=== PATIENT | female | born 1935 | race Caucasian/White ===

== ENCOUNTER 2018-03-27 11:56 | Inpatient (IN) | payer MEDICARE ==
[~2018-03-27] VITALS: Ht 149.9 cm; Wt 54.9 kg
[2018-03-27 12:24] LABS: BASOPHILS % 0.4 % (0.0-1.0); EOSINOPHILS # (AUTO) 0.2 (0.0-0.4); EOSINOPHILS % 3.6 % (0.0-6.0); HEMATOCRIT 37.8 % (34.2-44.1); HEMOGLOBIN 12.7 g/dL (12.0-16.0); LYMPHOCYTES # (AUTO) 1.9 (1.0-3.2); LYMPHOCYTES % 37.5 % (18.0-39.1); MEAN CORPUSCULAR HEMOGLOBIN 29.1 pg (28-32); MEAN CORPUSCULAR HGB CONC 33.6 g/dL (31-35); MEAN CORPUSCULAR VOLUME 86.7 fL (81-99); MONOCYTES # (AUTO) 0.4 (0.2-0.8); MONOCYTES % 8.6 % (4.4-11.3); NEUTROPHILS # (AUTO) 2.5 (2.1-6.9); NEUTROPHILS % 49.7 % (38.7-80.0); PLATELET COUNT 213 x10e3/uL (140-360); RED BLOOD COUNT 4.36 x10e6/uL (3.6-5.1); RED CELL DISTRIBUTION WIDTH 13.2 % (11.7-14.4)
[2018-03-27 12:33] LABS: INR 1.1; PROTHROMBIN TIME 13.4 seconds (11.9-14.5)
[2018-03-27 12:34] LABS: PARTIAL THROMBOPLASTIN TIME 30.6 seconds (23.8-35.5)
[2018-03-27 12:41] LABS: ALANINE AMINOTRANSFERASE 28 IU/L (0-55); ALBUMIN 3.8 g/dL (3.5-5.0); ALBUMIN/GLOBULIN RATIO 1.3 (0.8-2.0); ALKALINE PHOSPHATASE 62 IU/L (40-150); BLOOD UREA NITROGEN 10 mg/dL (7-26); BUN/CREATININE RATIO 13 (6-25); CALCIUM 9.4 mg/dL (8.4-10.2); CARBON DIOXIDE 28 mmol/L (22-29); CHLORIDE 104 mmol/L (98-107); CREATINE KINASE 68 IU/L (29-168); EST GLOMERULAR FILTRATION RATE > 60 ML/MIN (60-); GLUCOSE 126 mg/dL (74-118); SODIUM 139 mmol/L (136-145)
--- NOTE | 2018-03-27 13:17 | Diagnostic Imaging Report ---
Exam: Head CT without contrast History: Loss of vision. Comparison studies: None Technique: Axial images were obtained from the skull base to the vertex. Coronal and sagittal images reconstructed from the axial data. Intravenous contrast: None Findings: Scalp: No abnormalities. Bones: No fractures, blastic or lytic lesions. Brain sulci: Appropriate for age. Ventricles: Normal in size and configuration. No hydrocephalus. Extra-axial spaces: No masses, no fluid collection. Parenchyma: No mass, acute hemorrhage or acute or chronic cortical vascular insults. A few hypodensities in the supratentorial white matter are nonspecific but most compatible with chronic small vessel ischemic changes. Nonspecific left perimesencephalic curvilinear calcification without surrounding edema or mass affect may be vascular in etiology, possibly vascular calcification within the left posterior cerebral artery. Sellar/suprasellar region: No abnormalities. Craniocervical junction: Patent foramen magnum. No Chiari one malformation. Included paranasal sinuses: Right frontal sinus is opacified and contains inspissated hyperdense secretions. The bilateral ethmoid air cells are partially opacified and there is nonspecific mucosal thickening in the partially imaged maxillary sinuses. Small fluid level in the left sphenoid sinus could be correlated for acute sinusitis. 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 Intraocular lens replacements related to previous scattered surgery. IMPRESSION: 1. No acute intracranial abnormalities. 2. Mild to moderate chronic microvascular ischemic changes. 3. Intracranial vascular calcifications as described. 4. Inflammatory changes in the paranasal sinuses. Signed by: Dr. Giancarlo Ramírez M.D. on 03/27/2018 1:13 PM
--- NOTE | 2018-03-27 13:26 | Diagnostic Imaging Report ---
PROCEDURE: CHEST SINGLE (PORTABLE) COMPARISON: None. INDICATIONS: DOUBLE VISION. UNSTEADY GAIT FINDINGS: LUNGS: Vague ill-defined nodular opacity in the right upper lobe could be artifactual. Followup upright PA and lateral chest would be of benefit. PLEURA: No effusions or pneumothorax. HEART \T\ MEDIASTINUM: The heart is within normal size-limits. BONES \T\ SOFT TISSUES: No acute findings. CONCLUSION: 1. No acute thoracic abnormality. 2. Possible right upper lobe nodule. Vincent Villanueva D.O. Dictated by: Vincent Villanueva D.O. on 03/27/2018 at 13:29 Electronically approved by: Vincent Villanueva D.O. on 03/27/2018 at 13:29
[2018-03-27] MEDS ORDERED: ASPIRIN 325 MG TAB PO ONE (14:30)
--- OUTSIDE RECORDS SUMMARY | 2018-03-27 14:34 | XMS REPORT ---
Author Author [facility] Address Unknown Phone Unavailable Care Team Providers Care Improvement Nurse Name Role Phone ALEX NESBITT Unavailable Unavailable Problems This patient has no known problems. Allergies, Adverse Reactions, Alerts This patient has no known allergies or adverse reactions. Medications This patient has no known medications. Results Test Description Test Time Test Comments Text Results Atomic Results Result Comments CHEST SINGLE (PORTABLE) [place] [address] Patient Name: BITA LUEVANO MR #: [id number] : 1935 Age/Sex: 82/F Req #: [id number] Adm Physician: Ordered by: ALEX NESBITT MD Report #: [id number] Location: ER Room/Bed: Procedure: [id number] DX/CHEST SINGLE (PORTABLE) Exam Date: 03/27/18 Exam Time: 1225 REPORT STATUS: Signed PROCEDURE: CHEST SINGLE (PORTABLE) COMPARISON: None. INDICATIONS: DOUBLE VISION. UNSTEADY GAIT FINDINGS: LUNGS: Vague ill-defined nodular opacity in the right upper lobe could be artifactual. Followup upright PA and lateral chest would be of benefit. PLEURA: No effusions or pneumothorax. HEART T MEDIASTINUM: The heart is within normal size- limits. BONES T SOFT TISSUES: No acute findings. CONCLUSION : 1. No acute thoracic abnormality. 2. Possible right upper lobe nodule. Macario Villanueva D.O. Dictated by: Macario Villanueva D.O. on 03/27/2018 at 13:29 Electronically approved by: Macario Villanueva D.O. on 03/27/2018 at 13:29 Dictated By: MACARIO VILLANUEVA DO 1329 Transcribed By: STU on 03/27/18 1329 COPY TO: ALEX NESBITT MD CT BRAIN WO [place] [address] Patient Name: BITA LUEVANO MR #: [id number] : 1935 Age/Sex: 82/F Req #: [id number] Adm Physician: Ordered by: ALEX NESBITT MD Report #: [id number] Location: ER Room/Bed: Procedure: [id number] CT/CT BRAIN WO Exam Date: 03/27/18 Exam Time: 1225 REPORT STATUS: Signed Exam: Head CT without contrast History: Loss of vision. Comparison studies: None Technique: Axial images were obtained from the skull base to the vertex. Coronal and sagittal images reconstructed from the axial data. Intravenous contrast: None Findings: Scalp: No abnormalities. Bones: No fractures, blastic or lytic lesions. Brain sulci: Appropriate for age. Ventricles: Normal in size and configuration. No hydrocephalus. Extra-axial spaces: No masses, no fluid collection. Parenchyma: No mass, acute hemorrhage or acute or chronic cortical vascular insults. A few hypodensities in the supratentorial white matter are nonspecific but most compatible with chronic small vessel ischemic changes. Nonspecific left perimesencephalic curvilinear calcification without surrounding edema or mass affect may be vascular in etiology, possibly vascular calcification within the left posterior cerebral artery. Sellar/ suprasellar region: No abnormalities. Craniocervical junction: Patent foramen magnum. No Chiari one malformation. Included paranasal sinuses: Right frontal sinus is opacified and contains inspissated hyperdense secretions. The bilateral ethmoid air cells are partially opacified and there is nonspecific mucosal thickening in the partially imaged maxillary sinuses. Small fluid level in the left sphenoid sinus could be correlated for acute sinusitis. 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 Intraocular lens replacements related to previous scattered surgery. IMPRESSION: 1. No acute intracranial abnormalities. 2. Mild to moderate chronic microvascular ischemic changes. 3. Intracranial vascular calcifications as described. 4. Inflammatory changes in the paranasal sinuses. Signed by: Dr. Brittany Ramírez M.D. on 03/27/2018 1:13 PM Dictated By: BRITTANY RAMÍREZ MD 1313 Transcribed By: EVANS on 03/27/18 1313 COPY TO: ALEX NESBITT MD
--- NOTE | 2018-03-27 16:13 | Diagnostic Imaging Report ---
Exam: Brain MRI without IV contrast History: Right hemineglect Comparison studies: Head CT 03/27/2018 Technique: Precontrast axial DWI, axial T2*GRE, axial T1 FLAIR, sagittal and axial T2 FS and axial coronal T2 FLAIR. Intravenous contrast: None Findings: Scalp: Normal in signal. No masses. Bone marrow: Normal in signal intensity. Brain sulci: Appropriate for age. Ventricles: Normal in size. No hydrocephalus. Except axial spaces: No mass, no fluid collection. Parenchyma: No mass, acute hemorrhage or acute ischemia. A few scattered and mildly confluent T2 FLAIR hyperintense signal changes in the supratentorial white matter are nonspecific but most compatible with chronic small vessel ischemic changes. Suprasellar region: No abnormalities. Craniocervical junction: Patent foramen magnum. No Chiari malformation. Vessels: Normal flow-voids in the arteries and sinuses. Incidental findings: T2 hyperintense inflammatory changes with mucosal thickening throughout the right frontal sinus, bilateral ethmoids and maxillary sinuses. Right frontal sinus is completely opacified and contains T1 hyperintense inspissated secretions. Small retention cyst within inspissated secretions in the left nasal cavity. Minimal T2 hyperintense reactive changes in the right mastoids. Previously described vascular calcifications are better visualized on the previous CT. IMPRESSION: 1. No acute intracranial abnormalities. 2. Mild to moderate chronic microvascular ischemic changes. 3. Inflammatory changes in the paranasal sinuses. Signed by: Dr. Giancarlo Ramírez M.D. on 03/27/2018 4:09 PM
[2018-03-27] MEDS ORDERED: ONDANSETRON HCL INJ 2 MG/ML VIAL IV PRN (17:00)
[2018-03-27] MEDS ORDERED: HYDRALAZINE HCL 20 MG/ML VIAL IV PRN (17:00)
[2018-03-27] MEDS ORDERED: ONDANSETRON HCL 4 MG ORAL DISINTEGRATING TAB PO PRN (17:00)
[2018-03-27] MEDS ORDERED: ACETAMINOPHEN 325 MG TAB PO PRN (17:00)
[2018-03-27] MEDS ORDERED: LISINOPRIL10 MG PO (17:47)
[2018-03-27] MEDS ORDERED: MECLIZINE HCL12.5 MG PO (17:47)
[2018-03-27] MEDS ORDERED: ZOFRAN ODT4 MG (17:47)
[2018-03-27] MEDS ORDERED: SYNTHROID100 MCG PO (18:03)
[2018-03-27 18:19] VITALS: BP 146/66
[2018-03-27 18:35] VITALS: BP 150/66
[2018-03-27 20:00] VITALS: BP 158/67
[2018-03-27 20:39] LABS: CHOL/HDL RATIO 3.1 (3.0-3.6)
[2018-03-27] MEDS: ENOXAPARIN SOD INJ 40 MG/0.4 ML SYR SC SCH (21:27)
[2018-03-28] VITALS (9 sets, daily range): BP systolic 137–204; BP diastolic 55–79
[2018-03-28 06:02] LABS: BASOPHILS % 0.6 % (0.0-1.0); EOSINOPHILS # (AUTO) 0.4 (0.0-0.4); HEMATOCRIT 36.9 % (34.2-44.1); HEMOGLOBIN 12.2 g/dL (12.0-16.0); LYMPHOCYTES # (AUTO) 3.1 (1.0-3.2); LYMPHOCYTES % 59.1 % (18.0-39.1); MEAN CORPUSCULAR HEMOGLOBIN 29.3 pg (28-32); MEAN CORPUSCULAR HGB CONC 33.1 g/dL (31-35); MEAN CORPUSCULAR VOLUME 88.7 fL (81-99); MONOCYTES # (AUTO) 0.6 (0.2-0.8); MONOCYTES % 11.4 % (4.4-11.3); NEUTROPHILS # (AUTO) 1.1 (2.1-6.9); NEUTROPHILS % 20.7 % (38.7-80.0); PLATELET COUNT 194 x10e3/uL (140-360); RED BLOOD COUNT 4.16 x10e6/uL (3.6-5.1); RED CELL DISTRIBUTION WIDTH 13.4 % (11.7-14.4)
[2018-03-28 06:36] LABS: ANION GAP 9.3 mmol/L (8-16); CALCIUM 8.9 mg/dL (8.4-10.2); CREATININE, SERUM 0.91 mg/dL (0.57-1.11); MAGNESIUM 2.1 MG/DL (1.3-2.1); POTASSIUM 4.3 mmol/L (3.5-5.1)
[2018-03-28 06:59] LABS: FREE T4 (FREE THYROXINE) 0.66 ng/dL (0.9-1.8); THYROID STIMULATING HORMONE 9.145 uIU/mL (0.350-4.940)
[2018-03-28 07:15] LABS: B-TYPE NATRIURETIC PEPTIDE2 115.7 pg/mL (0-100)
[2018-03-28] MEDS ORDERED: LEVOTHYROXINE SODIUM 112 MCG TAB PO SCH (08:45)
[2018-03-28] MEDS ORDERED: LISINOPRIL 10 MG TAB PO SCH (09:00)
[2018-03-28] MEDS: FAMOTIDINE 20 MG TAB PO SCH ×2 (10:45→17:00)
[2018-03-28] MEDS: ASPIRIN 325 MG TAB EC PO SCH (10:45)
--- NOTE | 2018-03-28 13:54 | Consultation ---
DATE OF CONSULTATION: March 27, 2018 NEUROLOGY CONSULT NOTE HISTORY OF PRESENT ILLNESS: Ms. Sandy is an 82-year-old right hand dominant woman with past medical history significant for hypertension (uncontrolled), who presented to the emergency center at [facility] on March 27, 2018 with visual disturbance. At approximately 03:30 on the day of admission, the patient awoke from sleep to use the restroom. Afterwards, the patient returned to bed, but was unable to fall asleep. After staying in bed for 15 minutes, the patient decided she would awaken for the day. As she stood from the bed, the patient experienced the acute onset of dizziness, which she further describes as a vertiginous sensation. Ms. Sandy reports everything was moving (i.e. the floors, the dahl, the furniture). Ms. Sandy made her way to a chair in her bedroom and sat down in the hopes the sensation would resolve. However, there was no improvement of her symptoms. After sitting for a few minutes, the patient decided to take her blood pressure. However, she could not see the buttons or the dial on her blood pressure machine. The patient then reached for her telephone to call her daughter, who lives nearby. However, the patient could not make a call because she could not see the numbers on the telephone. After attempting to call her daughter for approximately 10 minutes, the patient left her home and made her way slowly to her daughter's home. The patient's daughter and son-in-law immediately brought Ms. Sandy into the living room and tried to take her blood pressure. However, the machine would not read her blood pressure because the systolic blood pressure was over 200 mmHg. Ms. Sandy was then placed in a car and taken to an urgent care center in [place], [place]. Medical records from the urgent care center are not available. After undergoing an evaluation at the urgent care center, the patient was sent home. However, her symptoms persisted, which was very concerning to her family. Ms. Sandy was then brought to the emergency center at [facility] for further evaluation of her symptoms. Upon admission to the emergency center, the patient was afebrile with a blood pressure of 161/71 mmHg and a pulse of 55 beats per minute. Documentation of the patient's neurological examination is not available at this time. Ms. Sandy underwent a CT of the brain without contrast, which did not show evidence of recent large territorial ischemia or hemorrhage. Ms. Sandy was admitted to the intermediate care unit at [facility] for further evaluation and treatment. Ms. Sandy further describes her visual disturbance as blurred vision. She also reports items in her field vision seem to move (like waves of water). The patient does not report dysarthria, aphasia, facial droop, weakness, numbness, or confusion. The patient's daughter, who is at the bedside, reports the patient has been without her antihypertensive medications for the past 5 weeks. Ms. Sandy does endorse a history of chronic intermittent vertigo. However, she reports her symptoms when experiencing the chronic intermittent vertigo are very different from the symptoms she is experiencing at present. REVIEW OF SYSTEMS: Palpitations, blurred vision, impairment of balance and gait, dizziness which is further described as a vertiginous sensation, mild headache. Otherwise, the 12-point review of systems is negative. PAST MEDICAL HISTORY: Hypertension, asthma, thyroid disease, chronic intermittent vertigo. PAST SURGICAL HISTORY: Repair of a retinal detachment, right toe surgery, tonsillectomy, bilateral cataract surgery. PAST HOSPITALIZATIONS: Surgeries/procedures as listed, childbirth twice. FAMILY HISTORY: The patient's paternal and maternal grandparents are . Their medical histories are unknown. The patient's father is from coronary artery disease with a myocardial infarction. The patient's mother during childbirth. Ms. Sandy has 2 siblings. Her sister is alive and has diabetes mellitus. Her brother is alive and has diabetes mellitus, coronary artery disease with 2 prior heart attacks and a prior 5-vessel CABG. The patient has 3 children, her son is alive and has a prior history of Barker's palsy. Two daughters are alive and have hyperlipidemia. SOCIAL HISTORY: Ms. Sandy is a . She is a college graduate. 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 The patient does not report current or prior tobacco, alcohol, or recreational drug use. HOME MEDICATIONS: 1. Lisinopril 10 mg by mouth daily. 2. Levothyroxine 100 mcg by mouth every morning. 3. Meclizine 25 mg by mouth daily. 4. Zofran 4 mg by mouth every 6 hours as needed for nausea. ALLERGIES: NO KNOWN DRUG ALLERGIES. NO KNOWN FOOD ALLERGIES. NO KNOWN ALLERGIES TO LATEX. NO KNOWN ALLERGIES TO IODINE OR OTHER CONTRAST MATERIALS. PHYSICAL EXAMINATION: VITAL SIGNS: Height 59 inches, weight 121 pounds, BMI 24.4 kg/sq m. Blood pressure 126/59 mmHg, pulse 46 beats per minute, respiratory rate 20 breaths per minute, oxygen saturation 96% on room air. GENERAL: The patient is awake and alert, does not appear distressed. HEENT: Normocephalic, atraumatic. Pupils are surgical. Moist mucous membranes. NECK: Supple. No appreciable thyromegaly. No appreciable carotid bruits. CARDIOVASCULAR: S1, S2, regular rate and rhythm. No murmurs, rubs, or gallops. RESPIRATORY: Clear to auscultation bilaterally. No wheezes, rhonchi, or rales. EXTREMITIES: The skin is warm and dry. No clubbing, cyanosis, or edema. The posterior tibial and dorsalis pedis pulses are 2+ and symmetric. SKIN: No rashes or lesions. NEUROLOGIC EXAMINATION: MEMORY/ATTENTION: The patient is awake and alert, oriented to person, place, time, and situation. CRANIAL NERVES: Cranial nerve I - not tested. Cranial nerves II, III, IV, and - Pupils are surgical. Extraocular movements intact except as follows: Impairment of right eye abduction (cranial nerve palsy). No nystagmus. Cranial nerve V - Sensation to light touch and pinprick is intact in the bilateral V1 through V3 distributions. Strength of the temporalis and masseter muscles is within normal limits. Cranial nerve VII - The face is symmetric, as are all facial movements. Strength is within normal limits. Cranial nerve VIII - Hearing is intact to finger rub bilaterally. Cranial nerve IX, X - The soft palate elevates equally and symmetrically. Cranial nerve XI - Normal strength of the bilateral sternocleidomastoid and trapezius muscles. Cranial nerve XII - The tongue protrudes midline and moves symmetrically from side to side. STRENGTH: Bulk is normal. Strength is 5/5 in the bilateral deltoids, biceps, triceps, wrist flexors and extensors, finger flexors and extensors, intrinsic hand muscles, hip flexors, knee flexors and extensors, ankle dorsiflexion and plantarflexion, and intrinsic foot muscles. Tone is normal. DTRs: Deep tendon reflexes are 2+ and symmetric at the triceps, biceps, brachioradialis, patellas, and Achilles'. Plantar responses are flexor bilaterally. SENSATION: Sensation is intact to light touch and pinprick in both arms and both legs. CEREBELLAR: [id number] and heel-wright movements are intact without dysmetria or other impairment. GAIT: Deferred. SPEECH: Spontaneous speech is normal without appreciable dysarthria or aphasia. Repetition is intact. INVOLUNTARY MOVEMENTS: None. PRONATOR DRIFT: None. LABORATORY DATA: Sodium 139, potassium 4.0, chloride 104, carbon dioxide 28, anion gap 11.0. BUN 10, creatinine 0.80, estimated GFR greater than 60, BUN to creatinine ratio 13, glucose 126, calcium 9.4. Total bilirubin 0.5, AST 28, ALT 28, alkaline phosphatase 62, total protein 6.8, albumin 3.8, globulin 3.0, albumin to globulin ratio of 1.3. CK 68, CK-MB 2.10, troponin I less than 0.001. B natriuretic peptide 115.5. CBC with differential and platelets reveals a white blood cell count of 5.01 with a normal differential. The hemoglobin and hematocrit are 12.7 and 37.8, respectively. The platelet count is 213,000. PT 13.4, INR 1.10, PTT 30.6. DIAGNOSTIC STUDIES: 1. EKG, March 27, 2018: Sinus bradycardia at 49 beats per minute. 2. CT of the brain without contrast, March 27, 2018: On my review, there is no evidence of recent large territorial ischemia, hemorrhage, mass, or mass effect. There are findings compatible with mild to moderate chronic small-vessel ischemic disease. 3. Chest x-ray, March 27, 2018: No acute thoracic abnormality. Possible right upper lobe nodule. 4. MRI of the brain without contrast, March 27, 2018: On my review, there is no evidence of recent large territorial ischemia, hemorrhage, mass, or mass effect. There are scattered foci of T2/FLAIR hyperintensity compatible with mild to moderate chronic small-vessel ischemic disease. ASSESSMENT AND PLAN: Ms. 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 The patient's neurological examination is significant for impairment of right eye abduction. Otherwise, her neurological examination is nonfocal. The patient's laboratory data and diagnostic studies have been reviewed and are documented above. Ms. Sandy has, for all intentional purposes, had a stroke. Recommendations for further evaluation are as follows: 1. Lipid panel and hemoglobin A1c. 2. Echocardiogram. 3. Bilateral carotid artery ultrasound with Doppler. 4. Aspirin 325 mg by mouth daily for stroke prophylaxis. 5. Allow permissive hypertension for 24 to 48 hours post stroke. 6. Follow up the lipid panel. 7. Follow up the hemoglobin A1c. Tight glycemic control is recommended while the patient is in the hospital. 8. A physical therapy evaluation will be ordered. Ms. Sandy has no appreciable language or cognitive deficits, so speech therapy evaluation will be deferred. 9. GI prophylaxis - Pepcid 20 mg by mouth twice daily before meals. DVT prophylaxis - Lovenox 40 mg subcutaneously daily. 10. Defer treatment of the remaining medical comorbidities to the primary and other services. Thank you for this consultation. I will continue to follow this patient while she remains in the hospital. Time spent 70 minutes. Job#: [id number] DR ROSS
[2018-03-28] MEDS ORDERED: LISINOPRIL 10 MG TAB PO ONE (16:45)
[2018-03-28] MEDS: ENOXAPARIN SOD INJ 40 MG/0.4 ML SYR SC SCH (17:00)
--- NOTE | 2018-03-28 17:40 | Cardiology Report ---
DATE OF STUDY: March 27, 2018 ECHOCARDIOGRAM M-MODE: Normal chamber wall dimensions. Normal contractility. Normal mitral and aortic valves. No pericardial effusion. SECTOR SCAN: Normal chamber wall dimensions. Borderline left ventricular contractility. Ejection fraction 45% to 50%. Mitral, aortic and tricuspid valves are grossly normal. There is no pericardial effusion. CARDIAC DOPPLER STUDY WITH COLOR: Trace mitral, tricuspid and pulmonic regurgitation. CONCLUSIONS 1. Borderline left ventricular contractility with ejection fraction of 45% to 50%. 2. Trace mitral, tricuspid and pulmonic regurgitation. 3. No evidence of ASD or VSD. 4. No evidence intracardiac thrombi or masses. Job#: [id number] cc:WILL KRUEGER MD
[2018-03-28] MEDS ORDERED: ATORVASTATIN 20 MG TAB PO SCH (21:00)
[2018-03-29 01:03] VITALS: BP 140/60
[2018-03-29 05:24] VITALS: BP 149/55
[2018-03-29] MEDS ORDERED: LEVOTHYROXINE SODIUM 100 MCG TAB PO SCH (06:00)
[2018-03-29] MEDS ORDERED: LEVOTHYROXINE SODIUM 112 MCG TAB PO SCH (06:00)
[2018-03-29 06:39] LABS: HEMOGLOBIN 12.7 g/dL (12.0-16.0); RED BLOOD COUNT 4.34 x10e6/uL (3.6-5.1)
[2018-03-29 06:40] LABS: BASOPHILS % 0.5 % (0.0-1.0); EOSINOPHILS # (AUTO) 0.5 (0.0-0.4); EOSINOPHILS % 7.6 % (0.0-6.0); HEMATOCRIT 37.7 % (34.2-44.1); LYMPHOCYTES # (AUTO) 2.6 (1.0-3.2); LYMPHOCYTES % 43.9 % (18.0-39.1); MEAN CORPUSCULAR HEMOGLOBIN 29.3 pg (28-32); MEAN CORPUSCULAR HGB CONC 33.7 g/dL (31-35); MEAN CORPUSCULAR VOLUME 86.9 fL (81-99); MONOCYTES # (AUTO) 0.6 (0.2-0.8); MONOCYTES % 10.1 % (4.4-11.3); NEUTROPHILS # (AUTO) 2.2 (2.1-6.9); NEUTROPHILS % 37.7 % (38.7-80.0); PLATELET COUNT 202 x10e3/uL (140-360); RED CELL DISTRIBUTION WIDTH 13.2 % (11.7-14.4)
[2018-03-29 06:47] LABS: ANION GAP 11.8 mmol/L (8-16); BLOOD UREA NITROGEN 19 mg/dL (7-26); BUN/CREATININE RATIO 24 (6-25); CALCIUM 8.9 mg/dL (8.4-10.2); CARBON DIOXIDE 28 mmol/L (22-29); CHLORIDE 105 mmol/L (98-107); CREATININE, SERUM 0.79 mg/dL (0.57-1.11); EST GLOMERULAR FILTRATION RATE > 60 ML/MIN (60-); GLUCOSE 93 mg/dL (74-118); MAGNESIUM 2.1 MG/DL (1.3-2.1); POTASSIUM 4.8 mmol/L (3.5-5.1); SODIUM 140 mmol/L (136-145)
[2018-03-29] MEDS ORDERED: ASPIRIN ENTERI325 MG PO (08:34)
[2018-03-29] MEDS ORDERED: LEVOTHYROXINE112 MCG PO (08:34)
[2018-03-29] MEDS ORDERED: LIPITOR20 MG PO (08:34)
[2018-03-29] MEDS ORDERED: LISINOPRIL10 MG PO (08:41)
[2018-03-29] MEDS ORDERED: NORVASC10 MG PO (08:42)
--- NOTE | 2018-03-29 08:42 | Cardiology Report ---
DATE OF STUDY: DOPPLER SCAN OF THE CAROTID The left and right carotid arteries were interrogated using the duplex scanning method. Left carotid artery shows moderate plaquing particularly in the left bulb and the left bifurcation. Velocity at the bulb was 1.27 meters per second. Left vertebral flow appears to be antegrade. Right carotid artery shows moderate plaquing particularly in the bifurcation and bulb, as well as a portion of the common carotid artery and internal carotid artery. Velocity was 1.36 meters per second. In the proximal right external carotid artery, bi-vertebral flow appears to be adequate. CONCLUSION 1. No high-grade stenosis bilaterally. 2. Moderate plaquing particularly in both bifurcations, both bulbs and both internal carotid arteries, as well as a portion of the right common carotid artery. 3. Borderline velocity 1.27 meters per second is noted in the left bulb and 1.36 meters per second noted in the right external carotid artery. 4. Vertebral flow appears to be normal direction bilaterally. Job#: [id number] RI cc:WILL KRUEGER MD
[2018-03-29] MEDS ORDERED: LISINOPRIL 10 MG TAB PO SCH (09:00)
[2018-03-29] MEDS ORDERED: AMLODIPINE BESYLATE 10 MG TAB PO SCH (09:00)
[2018-03-29 09:25] VITALS: BP 168/68
[2018-03-29] MEDS: FAMOTIDINE 20 MG TAB PO SCH (09:25)
[2018-03-29] MEDS: ASPIRIN 325 MG TAB EC PO SCH (09:25)
[2018-03-29 10:58] VITALS: BP 156/59
--- NOTE | 2018-03-29 15:43 | Discharge Summary ---
ADMISSION DIAGNOSES 1. Vertigo vision changes. 2. Hypothyroidism. 3. Hypertension. DISCHARGE DIAGNOSES 1. Vertigo vision changes. 2. Hypothyroidism. 3. Hypertension. 4. Cerebrovascular accident. HISTORY: Patient has a history of hypertension and hypothyroidism. Surgical history of right retinal detachment repair, right pinky toe surgery, tonsillectomy, and bilateral cataract repair. HOSPITAL COURSE: An 82-year-old female woke up at 3:30 in the morning on March 27, 2018, and was unable to fall back asleep. When she attempted to get out of bed, she felt dizzy. She then tried to take her blood pressure and could not see the buttons. She tried to use the phone, but she could not see the numbers. She walked to her daughter's house 2 doors down. Her daughter took her to the ER. Upon admission, the patient had carotid Doppler, which showed no evidence of carotid stenosis bilaterally. An echo with an EF of 45% to 50%, trace mitral, tricuspid and pulmonic regurg. CT of the brain showed no acute intracranial abnormalities, mild to moderate chronic microvascular ischemic changes. Chest x-ray showed no acute thoracic abnormality. MRI of the brain showed no acute intracranial abnormalities, mild to moderate chronic microvascular ischemic changes. Neuro was consulted. The patient was started on aspirin and Lovenox. Physical therapy evaluation done and major case detective consulted for placement per neuro rec. The patient was on levothyroxine 100 mcg daily. Her TSH was 9.145. Free T4 of 0.66. Her levothyroxine was then increased to 112 mcg. She was instructed to follow up with her primary care after the prescription runs out. Per neurology, although the images were negative, the patient did have a CVA, which was causing a cranial nerve palsy. Recommends to follow up with [facility] outpatient as she has had a patient with a similar stroke, and the outcome was very well after following up with [facility]. The patient is safe to discharge home with aspirin, Lipitor, and increased levothyroxine, as well as Norvasc added to control her blood pressure. She has been instructed to follow up with primary care in 1-2 weeks. Follow up with [facility] outpatient. Take her blood pressure and medications as prescribed. The patient and son agree to plan. DICTATED BY PRICILLA HARO NP WILL KRUEGER MD Job#: [id number] RI
== END 2018-03-29 11:10 | disposition home or self-care (01) | DRG 66 ==
LOC: ER 11:56 → ERHOLD 14:32 → IMCU 16:20 → UNDODISIN 03-29 11:10
PROVIDERS: ADMIT Internal Medicine; ATTEND Internal Medicine
DX: I63.9 Cerebral infarction, unspecified (principal); H81.8X9 Other disorders of vestibular function, unspecified ear; H53.8 Other visual disturbances; I10 Essential (primary) hypertension; E03.9 Hypothyroidism, unspecified; Z79.52 Long term (current) use of systemic steroids
CPT/HCPCS: 36415; 70450; 70551; 71045; 80048; 80053; 80061; 82550; 82553; 83036; 83735; 83880; 84439; 84443; 84484; 85025; 85610; 85730; 93005; 93306; 93880; 99285; J1650

== ENCOUNTER → 2019-04-03 | Outpatient (CLI) | payer MEDICARE ==
[~2019-04-03] MED LIST: ASPIRIN ENTERI325 MG PO; LEVOTHYROXINE112 MCG PO; LIPITOR20 MG PO; LISINOPRIL10 MG PO; MECLIZINE HCL12.5 MG PO; NORVASC10 MG PO; SYNTHROID100 MCG PO; ZOFRAN ODT4 MG
--- NOTE | 2019-04-03 16:36 | Diagnostic Imaging Report ---
Exam: Bone mineral density study. History: OSTEOPENIA Comparison: None available. Discussion: Evaluation of the left hip and lumbar spine was performed. The study is technically adequate. The patient's fracture risk is compared to an age-matched control. The patient denies prior surgery/fracture of the spine, hips or forearm. Left hip femoral neck bone mineral density: 0.5 g/cm2, T-score is -2.8, Z-score is -0.4. Left hip total bone mineral density: 0.7 g/cm2, T-score is -2.1, Z-score is 0.1. Lumbar spine total bone mineral density: 0.9 g/cm2, T-score is -1.3, Z-score is 1.4. Impression: Bone mineralization by WHO Classification is osteoporosis, the fracture risk is high. Signed by: Dr. Miguel A Sexton D.O., M.M.M. on 04/03/2019 4:33 PM
== END ==
LOC: DX 13:00
PROVIDERS: ATTEND Family Medicine
DX: M85.80 Other specified disorders of bone density and structure, unspecified site (principal)
CPT/HCPCS: 77080

== ENCOUNTER 2019-12-28 04:15 | Emergency (ER) | payer MEDICARE ==
[~2019-12-28] VITALS: Ht 147.3 cm; Wt 53.1 kg
[2019-12-28] MEDS ORDERED: ALBUTEROL/IPRATROPIUM 3 ML NEB NEB ONE (04:30)
[2019-12-28 04:37] LABS: BASOPHILS % 0.1 % (0.0-1.0); EOSINOPHILS # (AUTO) 0.3 (0.0-0.4); EOSINOPHILS % 3.1 % (0.0-6.0); HEMATOCRIT 42.6 % (34.2-44.1); HEMOGLOBIN 14.2 g/dL (12.0-16.0); LYMPHOCYTES # (AUTO) 1.3 (1.0-3.2); LYMPHOCYTES % 14.8 % (18.0-39.1); MEAN CORPUSCULAR HEMOGLOBIN 29.3 pg (28-32); MEAN CORPUSCULAR HGB CONC 33.3 g/dL (31-35); MEAN CORPUSCULAR VOLUME 87.8 fL (81-99); MONOCYTES # (AUTO) 0.6 (0.2-0.8); MONOCYTES % 6.5 % (4.4-11.3); NEUTROPHILS # (AUTO) 6.3 (2.1-6.9); NEUTROPHILS % 75.1 % (38.7-80.0); PLATELET COUNT 264 x10e3/uL (140-360); RED BLOOD COUNT 4.85 x10e6/uL (3.6-5.1); RED CELL DISTRIBUTION WIDTH 13.2 % (11.7-14.4)
[2019-12-28 04:49] LABS: ANION GAP 11.7 mmol/L (8-16); BLOOD UREA NITROGEN 16 mg/dL (7-26); BUN/CREATININE RATIO 20 (6-25); CALCIUM 9.5 mg/dL (8.4-10.2); CARBON DIOXIDE 28 mmol/L (22-29); CHLORIDE 102 mmol/L (98-107); EST GLOMERULAR FILTRATION RATE > 60 ML/MIN (60-); GLUCOSE 96 mg/dL (74-118); POTASSIUM 3.7 mmol/L (3.5-5.1); SODIUM 138 mmol/L (136-145)
[2019-12-28 04:57] LABS: CLARITY,URINE CLEAR (CLEAR); COLOR,URINE YELLOW (YELLOW); LEUKOCYTE ESTERASE ,URINE NEGATIVE (NEGATIVE); NITRITE,URINE NEGATIVE (NEGATIVE)
[2019-12-28 04:58] LABS: BACTERIA,URINE MODERATE /HPF; BILIRUBIN,URINE NEGATIVE (NEGATIVE); EPITHELIAL CELLS,URINE FEW /LPF; KETONES,URINE NEGATIVE (NEGATIVE); PROTEIN,URINE DIPSTICK TRACE (NEGATIVE); URINE UROBILINOGEN 0.2 mg/dL (0.2 - 1)
[2019-12-28] MEDS ORDERED: IOPAMIDOL 370 MG/ML 200 ML INFUS..BTL INJ ONE (05:04)
[2019-12-28] MEDS ORDERED: SODIUM CHLORIDE 0.9% 50ML 50 ML ONE (05:04)
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
--- NOTE | 2019-12-28 06:19 | Diagnostic Imaging Report ---
X-ray left wrist 3 views HISTORY: Pain. COMPARISON: None available. FINDINGS: Bones: No acute displaced fracture. Osseous alignment is within normal limits. Joints: The joint spaces are well-maintained. Soft tissues: Mild soft tissue swelling about the wrist. IMPRESSION: No acute radiographic osseous abnormality. The soft tissues appear unremarkable. Mild soft tissue swelling about the wrist. Signed by: Srikanth Hickman DO on 12/28/2019 6:16 AM
--- NOTE | 2019-12-28 06:20 | Diagnostic Imaging Report ---
X-ray right forearm 2 views HISTORY: Pain. COMPARISON: None available. FINDINGS: Bones: No acute displaced fracture. Osseous alignment is within normal limits. Joints: The joint spaces are well-maintained. Soft tissues: The soft tissues appear unremarkable. IMPRESSION: No acute radiographic osseous abnormality. Signed by: Srikanth Hickman DO on 12/28/2019 6:17 AM
--- NOTE | 2019-12-28 06:22 | Diagnostic Imaging Report ---
X-ray left foot 3 views HISTORY: Pain. COMPARISON: None available. FINDINGS: Bones: Acute minimally displaced oblique fracture of the fifth metatarsal shaft. Joints: The joint spaces are well-maintained. Soft tissues: Soft tissue swelling about the foot. IMPRESSION: Acute minimally displaced oblique fracture of the fifth metatarsal shaft. Signed by: Srikanth Hickman DO on 12/28/2019 6:19 AM
[2019-12-28 06:55] VITALS: BP 142/65
== END 2019-12-28 07:06 | disposition home or self-care (01) ==
LOC: ER 04:15
DX: S92.352A Displaced fracture of fifth metatarsal bone, left foot, initial encounter for closed fracture (principal); V53.5XXA Driver of pick-up truck or van injured in collision with car, pick-up truck or van in traffic accident, initial encounter; Y92.411 Interstate highway as the place of occurrence of the external cause; S60.812A Abrasion of left wrist, initial encounter; S30.1XXA Contusion of abdominal wall, initial encounter; S20.212A Contusion of left front wall of thorax, initial encounter; S50.11XA Contusion of right forearm, initial encounter; I10 Essential (primary) hypertension; E03.9 Hypothyroidism, unspecified; Z79.82 Long term (current) use of aspirin
CPT/HCPCS: 36415; 70450; 71260; 72125; 73090; 73110; 73630; 74177; 80048; 81001; 85025; 93005; 94640; 99284; Q9967

== ENCOUNTER → 2020-07-06 | Outpatient (CLI) | payer MEDICARE ==
--- NOTE | 2020-07-06 10:22 | Diagnostic Imaging Report ---
EXAM: BONE MINERAL DENSITY HISTORY: Decreased bone density COMPARISON: Bone mineral density evaluation 04/03/2019 DISCUSSION: Evaluation of the left hip and lumbar spine was performed utilizing DEXA Hologic bone densitometer. The study is technically adequate. The patient's fracture risk is compared to an age-matched control. The patient denies prior surgery/fracture of the spine, hips or forearm. Left hip femoral neck bone mineral density: 0.575 g/cm2, T-score is -2.5, Z-score is 0. Left hip total bone mineral density: 0.681 g/cm2, T-score is -2.1, Z-score is 0.1. No statistically significant change in total left hip bone mineral density compared to prior exam. Lumbar spine total bone mineral density: 0.899 gm/cm2, T-score is -1.3, Z-score is 1.5. No statistically significant change in total lumbar spine bone mineral density compared to prior exam. Impression: Bone mineralization by WHO Classification is osteoporosis, the fracture risk is high. Signed by: Dr. Casper Barfield M.D. on 07/06/2020 10:19 AM
== END ==
LOC: DX 08:08
PROVIDERS: ATTEND Family Medicine
DX: M85.88 Other specified disorders of bone density and structure, other site (principal)
CPT/HCPCS: 77080

== ENCOUNTER → 2022-07-06 | Outpatient (CLI) | payer MEDICARE | LOC: DX 12:41 | PROVIDERS: ATTEND Family Medicine | DX: M81.0 Age-related osteoporosis without current pathological fracture (principal) | CPT/HCPCS: 77080 ==

== ENCOUNTER → 2024-10-01 | Outpatient (REF) | payer MEDICARE | LOC: DX 15:40 | PROVIDERS: ATTEND Family Medicine | DX: M81.0 Age-related osteoporosis without current pathological fracture (principal) | CPT/HCPCS: 77080 ==

== ENCOUNTER 2025-04-27 14:56 | Emergency (ER) | payer MEDICARE ==
[~2025-04-27] VITALS: Ht 149.9 cm; Wt 50.8 kg
[2025-04-27 15:23] LABS: BASOPHILS % 0.6 % (0.0-1.0); EOSINOPHILS % 6.3 % (0.0-6.0); LYMPHOCYTES % 30.9 % (18.0-39.1); MONOCYTES % 8.1 % (4.4-11.3); NEUTROPHILS % 54.0 % (38.7-80.0); RED CELL DISTRIBUTION WIDTH 13.2 % (11.7-14.4)
[2025-04-27 15:51] LABS: EST GLOMERULAR FILTRATION RATE 70.0 ML/MIN (>=60)
[2025-04-27 16:30] VITALS: TEMP 98.5
[2025-04-27] MEDS ORDERED: SODIUM CHLORIDE 0.9% 1000ML 1,000 ML IV SCH (16:45)
[2025-04-27 16:50] LABS: LEUKOCYTE ESTERASE ,URINE TRACE (NEGATIVE); PROTEIN,URINE DIPSTICK NEGATIVE (NEGATIVE); URINE UROBILINOGEN 0.2 mg/dL (0.2 - 1)
[2025-04-27 16:58] LABS: WBC,URINE (MAN) 0-5 /HPF (0-5)
[2025-04-27 16:59] LABS: EPITHELIAL CELLS,URINE RARE /LPF
[2025-04-27 17:30] VITALS: PULSE 55; RESP 18; O2SAT 98
== END 2025-04-27 17:45 | disposition home or self-care (01) ==
LOC: ER 15:01
DX: R44.0 Auditory hallucinations (principal); I10 Essential (primary) hypertension; E03.9 Hypothyroidism, unspecified; J45.909 Unspecified asthma, uncomplicated
CPT/HCPCS: 36415; 70450; 71045; 80053; 81001; 84484; 85025; 93005; 99284